=== PATIENT | female | born 1995 | race Caucasian/White ===

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

== ENCOUNTER 2018-12-29 13:01 | Emergency (ER) | payer MEDICAID ==
[~2018-12-29] VITALS: Ht 170.2 cm; Wt 56.7 kg
--- NOTE | 2018-12-29 13:27 | NUR ---
PT TO ED FOR GENERALIZED FATIGUE X1 MONTH. RECENT MISCARRIAGE IN AUG 2018. PT CONNECTED TO MONITORS. VSS. EDMD PRESENT FOR EXAM. AWAITING ORDERS.
[2018-12-29 13:42] LABS: MICROSCOPIC NOT IND
[2018-12-29 13:53] LABS: BASOPHILS # (AUTO) 0.04 x10^3/uL (0-0.1); BASOPHILS % (AUTO) 1 % (0-1); EOSINOPHILS # (AUTO) 0.01 x10^3/uL (0-0.4); EOSINOPHILS % (AUTO) 0 % (1-7); LYMPHOCYTES % (AUTO) 32 % (22-44); MD NO; MEAN CORPUSCULAR HEMOGLOBIN 30.7 pg (27.0-34.8); MEAN CORPUSCULAR VOLUME 90.4 fL (80-100); MEAN PLATELET VOLUME 9.8 fL (7.4-10.4); MONOCYTES % (AUTO) 6 % (2-9); NEUTROPHILS # (AUTO) 2.78 x10^3/uL (1.8-6.8); NEUTROPHILS % (AUTO) 60 % (42-75); PLATELET COUNT 226 x10^3/uL (130-400); RED BLOOD COUNT 4.36 x10^6/uL (3.82-5.3); RED CELL DISTRIBUTION WIDTH 12.4 % (9.6-15.2)
[2018-12-29 13:58] LABS: CULTURE INDICATED? NO
[2018-12-29 14:02] LABS: ALANINE AMINOTRANSFERASE 16 U/L (12-78); ALBUMIN 3.8 g/dL (3.4-5.0); ANION GAP 5 mmol/L (5-15); CALCIUM 8.7 mg/dL (8.5-10.1); CHLORIDE 108 mmol/L (98-107); CREATININE 0.76 mg/dL (0.55-1.02)
[2018-12-29 14:07] LABS: ALKALINE PHOSPHATASE 61 U/L (45-117); BILIRUBIN,TOTAL 1.3 mg/dL (0.2-1.0)
[2018-12-29 14:23] VITALS: BP 111/67
--- NOTE | 2018-12-29 14:23 | NUR ---
pt up self to rr with steady gait. no other needs requested. vss. awaiting resutls.
== END 2018-12-29 14:40 | disposition home or self-care (01) ==
LOC: ED 14:34
DX: K59.00 Constipation, unspecified (principal); R10.84 Generalized abdominal pain
CPT/HCPCS: 36415; 80053; 81003; 84443; 84703; 85025; 93005; 99284